=== PATIENT | female | born 1955 ===

== ENCOUNTER → 2020-07-13 00:14 | Outpatient (CLI) | payer OTHER, SELFPAY ==
[2020-07-13 18:48] LABS: SARS-CoV-2 RNA PCR Negative
== END ==
PROVIDERS: Visit Provider Internal Medicine Gastroenterology
DX: Z01.812 Encounter for preprocedural laboratory examination (principal); Z20.822 Contact with and (suspected) exposure to COVID-19
CPT/HCPCS: C9803; U0003; U0005

== ENCOUNTER 2020-07-16 01:35 | Day surgery (SDC) | payer OTHER, SELFPAY ==
[2020-07-10 07:44] VITALS: BMI 23.4
[2020-07-16 10:28] VITALS: BP 147/91; PULSE 96; RESP 18; TEMP 36.2; O2SAT 99; BMI 24.8
[2020-07-16] MEDS: LACTATED RINGERS 1,000 ML 150 ML IV CONT (10:40)
--- NOTE | 2020-07-16 11:02 | WPDANESEPPF ---
Anes - Initial Pre Proc Eval Procedure: Operation Date: 07/16/20 12:00 Proposed Procedures p Screening Colonoscopy - Lakhwinder Valerio MD Date/Time: 07/16/20 11:02 Surgeon: Lakhwinder Valerio MD Pre Op Diagnosis: neoplasm screening Patient Data Age: 65 Gender: F Height: 5 ft 5 in Weight: 67.7 kg Last Vital Signs Temp 97.2 F L 07/16/20 10:28 Pulse 96 07/16/20 10:28 Resp 18 07/16/20 10:28 BP 147/91 H 07/16/20 10:28 Pulse Ox 99 07/16/20 10:28 Allergies Allergy/AdvReac Type Severity Reaction Status Date / Time Penicillins Allergy Other Verified 07/16/20 10:26 Home Medications Medication Instructions Recorded Confirmed Type atorvastatin 20 mg PO DAILY 07/10/20 07/10/20 History cyanocobalamin (vitamin B-12) 1,000 mcg PO DAILY 07/10/20 07/10/20 History [Vitamin B-12] duloxetine 60 mg PO DAILY 07/10/20 07/10/20 History folic acid 1 mg PO DAILY 07/10/20 07/10/20 History levothyroxine 75 mcg PO DAILY 07/10/20 07/10/20 History methotrexate sodium 20 mg PO WEEKLY 07/10/20 07/10/20 History pyridoxine (vitamin B6) [Vitamin 50 mg PO DAILY 07/10/20 07/10/20 History B-6] Patient hx anesthesia problems: none Family hx anesthesia problems: none [facility] Past Medical History Medical History (Updated 07/16/20 @ 11:01 by Onel Doe MD) Hyperlipidemia Hypothyroid Social History Social History Smoking packs per day: 0.5 Smoking cigarettes per day: 10.0 Years smoked: 50 Smoking pack-years: 25.00 Smoking status: Current every day smoker Tobacco type: cigarettes Alcohol intake: current Alcohol use details: RARELY (3-4 TIMES PER YEAR) Living arrangements: with family Spiritual care concerns: No Anes - Eval Final PreProcedure Day of Procedure 07/16/20 11:02 Patient weight: normal Heart: regular rate and rhythm Lungs: clear to auscultation Airway: Mallampati scale class II Neurological: alert and oriented Last oral intake: >/= 8 hours ASA classification: II Emergent: no Anesthetic plan: proceed Anesthesia type and monitoring: general GIVS and standard monitoring Informed Consent: The patient's anesthetic plan and its attendant risks and benefits were discussed with the patient/family/POA. Questions were solicited and answers provided to the satisfaction of the patient/family/POA.
--- NOTE | 2020-07-16 11:05 | PM.HPGS ---
History of Present Illness History of Present Illness Consent: Risks, benefits, and alternatives have been discussed and questions answered. Patient agrees to proceed with procedure. Chief complaint: neoplasm screening Narrative: Olivia Skinner is a 65 year old female Here for colon cancer screening. She believes her last colonoscopy was 10 years ago. Her mother had colon cancer. Review of Systems Review of Systems: All systems reviewed & are unremarkable except as noted in HPI and below PMFSH Past Medical History Medical History (Updated 07/16/20 @ 11:06 by Lakhwinder Valerio MD) Hyperlipidemia Hypothyroid Social History Social History Smoking packs per day: 0.5 Smoking cigarettes per day: 10.0 Years smoked: 50 Smoking pack-years: 25.00 Smoking status: Current every day smoker Tobacco type: cigarettes Alcohol intake: current Alcohol use details: RARELY (3-4 TIMES PER YEAR) Living arrangements: with family Spiritual care concerns: No Meds Home Medications and Allergies Home Medications Medication Instructions Recorded Confirmed Type atorvastatin 20 mg PO DAILY 07/10/20 07/10/20 History cyanocobalamin (vitamin B-12) 1,000 mcg PO DAILY 07/10/20 07/10/20 History [Vitamin B-12] duloxetine 60 mg PO DAILY 07/10/20 07/10/20 History folic acid 1 mg PO DAILY 07/10/20 07/10/20 History levothyroxine 75 mcg PO DAILY 07/10/20 07/10/20 History methotrexate sodium 20 mg PO WEEKLY 07/10/20 07/10/20 History pyridoxine (vitamin B6) [Vitamin 50 mg PO DAILY 07/10/20 07/10/20 History B-6] Allergies Allergy/AdvReac Type Severity Reaction Status Date / Time Penicillins Allergy Other Verified 07/16/20 10:26 Vital Signs Vital Signs - 24 hr 07/16/20 10:28 Temperature 36.2 C L Pulse Rate 96 Respiratory Rate 18 Blood Pressure 147/91 H Pulse Oximetry 99 Exam Resp: Auscultation: clear to auscultation bilaterally Cardio: Rate: regular rate Rhythm: regular rhythm GI: GI Palp: Yes Soft to palpation and No Tenderness to palpation present (GI) Assessment and Plan Assessment and plan (1) Colon cancer screening: Code(s): Z12.11 - Encounter for screening for malignant neoplasm of colon Status: Acute Assessment and Plan: Colonoscopy with possible biopsy or polypectomy or cautery or injection of substances.
[2020-07-16 11:29] VITALS: BP 93/64; PULSE 82; RESP 16; O2SAT 92
[2020-07-16 11:39] VITALS: BP 95/66; PULSE 89; RESP 16; O2SAT 96
[2020-07-16 11:47] VITALS: BP 121/80; PULSE 84; RESP 16; O2SAT 99
== END 2020-07-16 12:04 | disposition home or self-care (01) ==
PROVIDERS: PCP Family Medicine; Visit Provider Internal Medicine Gastroenterology
PROC: 0DJD8ZZ Inspection of Lower Intestinal Tract, Via Natural or Artificial Opening Endoscopic (ICD-10-PCS; CPT 45378; principal; 2020-07-16 12:00)
DX: Z12.11 Encounter for screening for malignant neoplasm of colon (principal); D12.2 Benign neoplasm of ascending colon; D12.8 Benign neoplasm of rectum; K63.5 Polyp of colon; K57.30 Diverticulosis of large intestine without perforation or abscess without bleeding; K64.8 Other hemorrhoids; E78.5 Hyperlipidemia, unspecified; E03.9 Hypothyroidism, unspecified; F17.210 Nicotine dependence, cigarettes, uncomplicated
CPT/HCPCS: 45385; 45380; 88305; C9803; J2704; J7120; U0003; U0005

== ENCOUNTER 2021-10-04 16:00 | Outpatient (CLI) | payer OTHER, SELFPAY ==
--- NOTE | ~2021-10-04 | CT_ITS ---
EXAMINATION: CT lung screening DATE: 10/04/2021 16:16 INDICATION: Lung cancer screening TECHNIQUE: Computed tomography (CT) of the chest was performed without intravenous contrast. The dose -length product was 56.24 mGy-cm. Automated exposure control and iterative reconstruction technique w ere employed. COMPARISON: None FINDINGS: Heart size is normal. No significant thoracic lymphadenopathy. No pleural or pericardial ef fusion. There is 2.4 cm low-density lesion of the right adrenal gland, consistent with adenoma. No en dobronchial lesions. There is a calcified granuloma left upper lobe. There are a few small 1-2 mm nod ules bilaterally. No pneumothorax. No endobronchial lesions. No focal airspace consolidation. Mild th oracic spondylosis. IMPRESSION: 1. Lung-RADS category 2: Benign appearance or behavior. Continue annual screening with noncontrast lo w-dose chest CT in 12 months. Reviewed, dictated and finalized at location [facility]. IMPRESSION: 1. Lung-RADS category 2: Benign appearance or behavior. Continue annual screeni ng with noncontrast low-dose chest CT in 12 months.
== END 2021-10-04 16:01 | disposition home or self-care (01) ==
LOC: ANHIMG 16:02
PROVIDERS: PCP Family Medicine; Visit Provider Nurse Practitioner Family
DX: Z12.2 Encounter for screening for malignant neoplasm of respiratory organs (principal); Z87.891 Personal history of nicotine dependence
CPT/HCPCS: 71271

== ENCOUNTER → 2021-10-27 13:36 | Outpatient (CLI) | payer OTHER, SELFPAY ==
--- NOTE | ~2021-10-27 | MM_ITS ---
EXAMINATION: MM screening [facility] BI w micaela HISTORY: Screening mammogram TECHNIQUE: Craniocaudal and mediolateral oblique 3-D tomosynthesis images were obtained and synthetic 2-D images were generated. CAD analysis was submitted and interpreted. COMPARISON: 11/05/2010, 04/14/2007 BREAST PARENCHYMAL COMPOSITION: There are scattered areas of fibroglandular density. FINDINGS: There is no suspicious mass, calcification, or architectural distortion to suggest malignan cy in either breast. There has been no suspicious interval change. IMPRESSION: 1. No mammographic evidence of malignancy. 2. Recommend routine screening mammography in one year. BI-RADS Category 1: Negative Reviewed, dictated and finalized at location [facility].
== END ==
PROVIDERS: PCP Family Medicine; Visit Provider Nurse Practitioner Family
DX: Z12.31 Encounter for screening mammogram for malignant neoplasm of breast (principal)
CPT/HCPCS: 77063; 77067

== ENCOUNTER 2023-01-10 08:45 | Outpatient (CLI) | payer OTHER, SELFPAY ==
--- NOTE | 2023-01-31 14:11 | WPDHOMESLEEP ---
Sleep Study - Home Unattended Date of Study: 01/10/23 Ordering Provider: Tarik Goddard MD Interpreting Provider: Chey Saba, DO Home Sleep Study Type: Apnea Link Air Height: 1.65 m Weight: 68.039 kg Body Mass Index: 25.0 Neck Circumference (inches): 13 Mary Alice: 14 Reason for Sleep Study Snoring, daytime hypersomnia Sleep History The patient is a 68-year-old female with rheumatoid arthritis, hypothyroidism, hyperlipidemia, depression, hypertension and current tobacco use that had a sleep study ordered by her primary care for evaluation sleep. The patient rarely awakens from sleep short of breath. She rarely awakens at night with heartburn, belching or. She occasionally snores and is occasionally loud enough others complain. She frequently has trouble sleeping when she has a cold. She denies waking gasping for air throughout the night. She denies having breathing problems at night observed by herself or others. She occasionally sweats excessively at night. She denies having heart palpitations or irregular heartbeats during the night. She frequently falls asleep during the day but never while driving. She denies cataplexy and hypnagogic/ hypnopompic hallucinations. She occasionally has trouble at school or work due to sleepiness. She rarely feels unable to move while waking up falling asleep. She denies feeling afraid of going to sleep. She occasionally has nightmares and occasionally remembers her dreams. She occasionally has thoughts racing through her mind. She constantly feels sad, depressed and anxious. She constantly has muscular tension. She frequently notices parts of her body jerk. She frequently kicks during the night. She frequently experiences crawling and aching feelings in her legs and frequently has leg pain during the night. She denies grinding teeth during her sleep but frequently awakens with morning jaw pain. She is constantly bothered by pain during the day and occasionally awakened by pain during the night. She frequently wakes up feeling stiff in the morning. She constantly wakes up with sore or achy muscles. She frequently wakes up with pain in the neck, spine or other joints. She goes to bed between 8-9 a.m. on both weekdays and weekends. She wakes up 4 times throughout the night to urinate and is able to fall back asleep within 5-10 minutes. She wakes up at 8:35 a.m. p.m. on both weekdays and weekends. She typically gets 7 hours of sleep per night. She will stay in bed for 30 minutes after waking up. She currently lives with her . She currently works the midnight shift. She will consume caffeinated beverages within 2 hours of bedtime. She denies engaging in physical exercise before bedtime. She will watch television before falling asleep. She will take naps in the afternoon or the evening but they are not refreshing. She consumes 5 caffeinated beverages per day. She currently smokes 1 pack of cigarettes per day. She denies alcohol and recreational drug use. [facility], [facility] Past Medical History Medical History Adenomatous polyp of colon Angular cheilitis BMI 24.0-24.9, adult BMI 28.0-28.9,adult Breast cancer screening Normal mammogram 10/27/2021. Chest pain Chronic low back pain COVID-19 (~02/19/22) Dry skin dermatitis Eczema Elevated liver enzymes (11/29/22) AST 55, ALT 55 on 11/29/2022 Essential hypertension Fatigue Hyperlipidemia Hypersomnia Hypothyroid Pharyngitis Plantar wart of both feet Screening for lung cancer CT of the lung on 10/04/2021 with no suspicious lesions. 2.4 cm adenoma right adrenal gland. Calcified granulomas left upper lobe. Multiple 1-2 mm nodules thought to be benign. Spondylosis of the thoracic spine. Snoring Tubular adenoma of colon (07/16/20) and tubular adenoma of the ascending colon and rectal: With serrated sessile polyp of the sigmoid colon on 07/16/2020. Recheck in 5 years [facility]re
[2023-01-31 14:21] VITALS: BMI 25.0
== END 2023-01-12 11:28 | disposition home or self-care (01) ==
LOC: ANHCSM 08:46
PROVIDERS: PCP Family Medicine; Visit Provider Family Medicine
DX: G47.10 Hypersomnia, unspecified (principal); R06.83 Snoring
CPT/HCPCS: 95806

== ENCOUNTER → 2023-02-06 08:27 | Outpatient (CLI) | payer OTHER, SELFPAY ==
--- NOTE | ~2023-02-06 | CT_ITS ---
CT Scan of the Chest without Contrast: Clinical Indication: Lung cancer screening, smoking history Technique: Contiguous sections were acquired throughout the chest without intravenous contrast. Dose reduction technique was used on this scan by utilizing automated exposure control and iterative recon struction technique. The dose-length product (DLP) was 56.18 mGy-cm. COMPARISON: 10/04/2021 Findings: There is no evidence of any significant mediastinal, hilar or axillary lymphadenopathy. Calcified lym ph nodes are present in the mediastinum and left hilum. The mediastinal soft tissues otherwise appear normal. There is no evidence of pleural or pericardial effusion. Calcified left upper lobe granulomas noted. No other pulmonary nodule noted. Images through the upper abdomen reveal stable low-density right adrenal nodule. Impression: Lung RADS 2: Benign appearance. [address] advised. Reviewed, dictated and finalized at [facility]. ING MACHINE OPERATOR Impression: Lung RADS 2: Benign appearance. [address] advised.
== END ==
PROVIDERS: PCP Family Medicine; Visit Provider Nurse Practitioner Family
DX: Z12.2 Encounter for screening for malignant neoplasm of respiratory organs (principal); F17.210 Nicotine dependence, cigarettes, uncomplicated
CPT/HCPCS: 71271